=== PATIENT | female | born 1985 | race Caucasian/White ===

== ENCOUNTER 2017-06-22 02:59 | Emergency (ER) | payer OTHER ==
[~2017-06-22] VITALS: Ht 152.4 cm; Wt 55.0 kg
[2017-06-22 03:01] VITALS: BP 124/71; PULSE 98; RESP 15; TEMP 98.9; O2SAT 100
[2017-06-22 04:08] LABS: BACTERIA, URINE FEW /hpf; BLOOD, URINE LARGE (NEG); COMMENT (UR) CULTURE INDICATED; CULTURE IF INDICATED CULTURE INDICATED; GLUCOSE,URINE NEG (NEG); KETONE, URINE 10 mg/dL (NEG); NITRITE,URINE POS (NEG); PH, URINE 5.5 (5.0-8.5)
[2017-06-22 04:09] LABS: URINE COLOR RED (YELLW/STRAW)
[2017-06-22] MEDS ORDERED: PHENAZOPYRIDINE HCL 100 MG TAB PO ONE (04:15)
[2017-06-22] MEDS ORDERED: CIPROFLOXACIN 500 MG TAB PO ONE (04:15)
[2017-06-22] MEDS ORDERED: ACETAMINOPHEN/HYDROcodone 325 MG/5 MG TAB PO ONE (04:15)
[2017-06-22] MEDS ORDERED: PHEN0.4T PO (05:22)
[2017-06-22] MEDS ORDERED: HYDR-3533 PO (05:22)
[2017-06-22] MEDS ORDERED: CIPR-9 PO (05:22)
[2017-06-22] MEDS ORDERED: PROM25TA10 PO (05:22)
--- NOTE | 2017-06-22 05:25 | PD ---
HPI Chief Complaint: Complaint Time Seen by Provider: 04:15 Travel History International Travel<30 days: No Contact w/Intl Traveler<30days: No Traveled to known affect area: No History of Present Illness HPI 31-year-old female with there is dysuria times one day. Patient reports that she's been traveling to the area by motorcycle and did not start expanding symptoms until today. Patient reports dysuria as severe. No hematuria no frequency or urgency. No flank pain. No fever or chills. Patient has had urinary tract infections in the past and typically responds well to Pyridium for pain management. Patient denies other concerns or complaints and denies . PFSH Past Medical History Narrative Medical Negative past medical history negative surgical history tobacco use alcohol and use nursing notes reviewed Medical History: Denies Significant Hx ?: Not LMP: 05/02/17 Past Surgical History Surgical History: No Previous Surgery Social History Alcohol Use: Yes (3 DRINKS PER WEEK) Tobacco Use: Yes (1PPD) Substance Use: No Allergies-Medications (Allergen,Severity, Reaction): Coded Allergies: No Known Allergies (Unverified , 06/22/17) Reported Meds & Prescriptions Reported Meds & Active Scripts Active Phenergan (Promethazine HCl) 25 Mg Tablet 25 Mg PO Q6H PRN Pyridium (Phenazopyridine HCl) 100 Mg Tab 100 Mg PO Q8H PRN Lortab (Hydrocodone-Acetaminophen) 5-325 Mg Tab 1 Tab PO Q6H PRN Cipro (Ciprofloxacin HCl) 500 Mg Tab 500 Mg PO BID 7 Days Review of Systems Except as stated in HPI: all other systems reviewed are Neg General / Constitutional: No: Fever, Chills HENT: No: Congestion Cardiovascular: No: Chest Pain or Discomfort Respiratory: No: Shortness of Breath Gastrointestinal: No: Nausea, Vomiting, Abdominal Pain Genitourinary: Positive: Dysuria, No: Pelvic Pain, Flank Pain Musculoskeletal: No: Myalgias, Arthralgias Skin: No Rash Neurologic: No: Weakness Psychiatric: No: Anxiety Hematologic/Lymphatic: No: Lymph Node Enlargement Physical Exam Narrative GENERAL: Well-developed well-nourished female in obvious discomfort no respiratory distress SKIN: Warm and dry. HEAD: Normocephalic. EYES: No scleral icterus. No injection or drainage. NECK: Supple, trachea midline. No JVD or lymphadenopathy. CARDIOVASCULAR: Regular rate and rhythm without murmurs, gallops, or rubs. RESPIRATORY: Breath sounds equal bilaterally. No accessory muscle use. GASTROINTESTINAL: Abdomen soft, mild suprapubic tenderness to palpation without guarding or rebound, nondistended. MUSCULOSKELETAL: No cyanosis, or edema. BACK: Nontender without obvious deformity. No CVA tenderness. Data Data Last Documented VS Vital Signs Date Time Temp Pulse Resp B/P (MAP) Pulse Ox O2 Delivery O2 Flow Rate FiO2 06/22/17 05:39 06/22/17 03:01 98.9 98 15 100 Room Air Orders Orders Urinalysis - C+S If Indicated (06/22/17 03:12) Ed Urine Pregnancytest Poc (06/22/17 03:12) Urine Culture (06/22/17 03:20) Phenazopyridine (Pyridium) (06/22/17 04:15) Ciprofloxacin (Cipro) (06/22/17 04:15) Acetamin-Hydrocod 325-5 Mg ([place] 5-325 (06/22/17 04:15) Ed Discharge Order (06/22/17 05:25) Labs Laboratory Tests Test 06/22/17 03:20 Urine Color RED Urine Turbidity CLOUDY Urine pH 5.5 Urine Specific [place] 1.024 Urine Protein 100 mg/dL Urine Glucose (UA) NEG mg/dL Urine Ketones 10 mg/dL Urine Occult Blood LARGE Urine Nitrite POS Urine Bilirubin NEG Urine Urobilinogen LESS THAN 2.0 MG/DL Urine Leukocyte Esterase LARGE Urine RBC /hpf Urine WBC /hpf Urine WBC Clumps MANY Urine Bacteria FEW /hpf Urine Yeast (Budding) FEW Microscopic Urinalysis Comment CULTURE INDICATED MDM Medical Decision Making Medical Screen Exam Complete: Yes Emergency Medical Condition: Yes Medical Record Reviewed: Yes Interpretation(s) [id number] hCG negative Urinalysis positive nitrites positive leukocyte Estrace positive white blood cells positive bacteria culture indicated Vital Signs Date Time Temp Pulse Resp B/P (MAP) Pulse Ox O2 Delivery O2 Flow Rate FiO2 06/22/17 05:39 06/22/17 03:01 98.9 98 15 124/71 (88) 100 Room Air Differential Diagnosis Dysuria, UTI, pyelonephritis, PID, vaginitis, ovarian cyst pain, ectopic Narrative Course Urine specimen collected and [id number] hCG is negative Patient has clearly abnormal urinalysis given first dose of oral antibiotic along with one-time dose of Lortab and Pyridium Patient noting improvement of symptoms and stable for outpatient management Diagnosis Primary Impression: UTI (urinary tract infection) Referrals: Primary Care Physician call for appointment Patient Instructions: General Instructions Additional Instructions: Increase fluid hydration Follow-up with your primary care provider Take acetaminophen/Tylenol as needed for fever 100.4F or greater Take ibuprofen 400 mg as often as every 6 hours as needed for fever 100.4F or greater or for pain associated with inflammation Return to the emergency department for any concerns or change in condition next line complete course of antibiotic as prescribed Med/Other Pt SpecificInfo: Prescription(s) given Scripts Promethazine (Phenergan) 25 Mg Tablet 25 MG PO Q6H Y for NAUSEA OR VOMITING, #6 TAB 0 Refills Prov: Meka Choi MD 06/22/17 Phenazopyridine (Pyridium) 100 Mg Tab 100 MG PO Q8H Y for DYSURIA, #6 TAB 0 Refills Prov: Meka Choi MD 06/22/17 Hydrocodone-Acetaminophen (Lortab) 5-325 Mg Tab 1 TAB PO Q6H Y for PAIN, #7 TAB 0 Refills Prov: Meka Choi MD 06/22/17 Ciprofloxacin (Cipro) 500 Mg Tab 500 MG PO BID for Infection for 7 Days, #14 TAB 0 Refills Prov: Meka Choi MD 06/22/17 Disposition: 01 DISCHARGE HOME Condition: Stable Meka Choi MD Jun 22, 2017 05:25
== END 2017-06-22 05:39 | disposition home or self-care (01) ==
LOC: NEPC 02:59
DX: N39.0 Urinary tract infection, site not specified (principal); B96.20 Unspecified Escherichia coli [E. coli] as the cause of diseases classified elsewhere; F17.200 Nicotine dependence, unspecified, uncomplicated
CPT/HCPCS: 81001; 84703; 87077; 87086; 87186; 99284